=== PATIENT | female | born 1935 | race Caucasian/White ===

== ENCOUNTER 2018-09-05 15:17 | Emergency (ER) | payer OTHER ==
--- NOTE | 2018-09-05 15:36 | PDOC ---
Rapid Medical Evaluation Time Seen by Provider: 09/05/18 15:33 Medical Evaluation: 09/05/18 15:33 HPI: sent by urgent care for HTN with associated dizziness and headache since yesterday PE: no gross deficits ORDERS: cardiac work up 09/05/18 15:35 Discharge Disposition - Diagnosis Dizziness - Referrals - Patient Instructions - Post Discharge Activity
[2018-09-05 15:38] VITALS: BMI 35.3
[2018-09-05] MEDS ORDERED: SODIUM CHLORIDE 1,000 ML IV SCH (15:45)
--- NOTE | 2018-09-05 16:30 | PDOC ---
History of Present Illness - General Stated Complaint: HIGH BLOOD PRESSURE Time Seen by Provider: 09/05/18 15:33 - History of Present Illness Initial Comments: 09/05/18 16:28 82yo F hx CAD s/p stent 09/2016, HTN, HL presents to the ED with 1 day of generalized weakness, dizziness, headache, and elevated BP. Pt here with nate who reports while the patient is typically very active, she has been very tired over the last 24 hours, preferring to be in bed. She reports a gradual onset frontal headache, also for 24 hours, that feels like previous headaches she has had. She c/o dizziness as well, that she describes as feeling tired. Denies room spinning sensation or lightheadness. Jenn notes that pt's losartan dose was doubled 1 month ago due to persistently elevated BP (she is also on atenolol) and today, she was concerned the weakness and headache were a sign of elevated BP and so she took her to urgent care for a BP check. While at urgent care, her BP was found to be 183/67 and she was sent here for further evaluation. An EKG was done at as well which is non ischemic on my review. On review of systems, pt also reporting shortness of breath with exertion for weeks. Pt's jenn notes that the patient walks across the room before she feels short of breath. Denies headache, focal weakness/numbness, cp, abd pain, N/V/D, urinary sxs, rashes, back pain, neck pain. No treatments tried Past History - Past Medical History Allergies/Adverse Reactions: Allergies Allergy/AdvReac Type Severity Reaction Status Date / Time No Known Allergies Allergy Verified 09/05/18 15:38 Home Medications: Ambulatory Orders Atenolol [Tenormin] 50 mg PO DAILY 09/05/18 Atorvastatin Calcium [Lipitor] 20 mg PO HS 09/05/18 Clopidogrel Bisulfate [Plavix -] 75 mg PO DAILY 09/05/18 Losartan Potassium [Cozaar -] 50 mg PO DAILY 09/05/18 Ranitidine HCl [Zantac] 150 mg PO BID 09/05/18 COPD: No HTN: Yes Hypercholesterolemia: Yes - Suicide/Smoking/Psychosocial Hx Smoking History: Never smoked Review of Systems - Review of Systems Comments:: 09/05/18 19:31 GENERAL/CONSTITUTIONAL: No fever or chills. +weakness. HEAD, EYES, EARS, NOSE AND THROAT: No change in vision. No ear pain or discharge. No sore throat. GASTROINTESTINAL: No nausea, vomiting, diarrhea or constipation. GENITOURINARY: No dysuria, frequency, or change in urination. CARDIOVASCULAR: No chest pain +shortness of breath. RESPIRATORY: No cough, wheezing, or hemoptysis. MUSCULOSKELETAL: No joint or muscle swelling or pain. No neck or back pain. SKIN: No rash NEUROLOGIC: +headache, no vertigo, loss of consciousness, or change in strength/ sensation. ENDOCRINE: No increased thirst. No abnormal weight change. HEMATOLOGIC/LYMPHATIC: No anemia, easy bleeding, or history of blood clots. ALLERGIC/IMMUNOLOGIC: No hives or skin allergy. *Physical Exam - Vital Signs Last Vital Signs Temp Pulse Resp BP Pulse Ox 98.4 F 60 17 186/53 H 98 09/05/18 15:36 09/05/18 15:36 09/05/18 15:36 09/05/18 15:36 09/05/18 15:36 - Physical Exam Comments: 09/05/18 19:31 GENERAL: Awake, alert, and fully oriented, in no acute distress. HEAD: No signs of trauma EYES: PERRLA, EOMI, sclera anicteric, conjunctiva clear ENT: Auricles normal inspection, hearing grossly normal, nares patent, oropharynx clear without exudates. Moist mucosa NECK: Normal ROM, supple, no lymphadenopathy, JVD, or masses LUNGS: Breath sounds equal, clear to auscultation bilaterally. No wheezes, and no crackles HEART: Regular rate and rhythm, normal S1 and S2, no murmurs, rubs or gallops ABDOMEN: Soft, nontender, normoactive bowel sounds. No guarding, no rebound. No masses EXTREMITIES: Normal range of motion, no edema. No clubbing or cyanosis. No cords, erythema, or tenderness NEUROLOGICAL: Normal speech, cranial nerves intact, negative pronator drift, 5/ 5 strength in all 4 extremities, normal sensation to light touch in all 4 extremities, normal cerebellar exam, normal gait, normal reflexes and tone SKIN: Warm, Dry, normal turgor, no rashes or lesions noted. ED Treatment Course - LABORATORY CBC & Chemistry Diagram: 09/05/18 16:50 09/05/18 16:50 Medical Decision Making - Medical Decision Making 09/05/18 16:42 82yo F hx CAD s/p stent 2017, HTN, HL presents to the ED with generalized weakness, headache, and elevated BP. On arrival, BP elevated to 186/53, remaining vitals wnl Exam wnl, pt is neurologically intact. NIHSS 0 Stroke w/u initiated by RME DDx includes infection vs metabolic disarray vs CVA vs anemia vs ACS Plan: -labs -CXR -CTH -UA/Ucx -reassess 09/05/18 20:02 Pt feeling significantly better At baseline per family CTH pending - significant delays in CT as radiology dept is backed up 09/05/18 21:33 CTH negative Will rpt trop if negative, pt clincially stable for DC home 09/05/18 23:04 2nd trop neg Pt continues to feel well ate dinner Ambulating in ED at baseline Eager to go home Strict return precautions given I discussed the physical exam findings, ancillary test results and final diagnoses with the patient. I answered all of the patient's questions. The patient was satisfied with the care received and felt comfortable with the discharge plan and treatment plan. The patient will call their primary care physician within 24 hours to arrange follow-up and will return to the Emergency Department with any new, persistent or worsening symptoms. *DC/Admit/Observation/Transfer Diagnosis at time of Disposition: High blood pressure, Headache, Weakness - Discharge Dispostion Disposition: HOME Condition at time of disposition: Improved Decision to Admit order: No - Referrals Referrals: Florian Gardner MD [Primary Care Provider] - - Patient Instructions Printed Discharge Instructions: DI for High Blood Pressure Additional Instructions: Your labs, CT head, and urine testing were all normal today It is possible you were a bit dehydrated We are glad you feel better. Follow up with your primary care doctor in 2-3 days Take your medications as prescribed Return to the emergency department immediately if you have any new, worsening, or concerning symptoms It was a pleasure to take care of you today at [facility], feel better ! - Post Discharge Activity - Attestations Physician Attestion: 09/05/18 23:13 I, Dr. Nuzhat Palacio MD, attest that this document has been prepared under my direction and personally reviewed by me in its entirety. I further attest, that it accurately reflects all work, treatment, procedures and medical decision -making performed by me.
[2018-09-05 17:35] LABS: BASO % 0.8 % (0-2.0); HEMATOCRIT 36.7 % (32.4-45.2); HEMOGLOBIN 12.4 GM/dL (10.7-15.3); LYMPH % 20.4 % (8-40); MCH 30.1 pg (25.7-33.7); MCHC 33.8 g/dl (32.0-36.0); MEAN CELL VOLUME 89.2 fl (80-96); MEAN PLT VOLUME 8.5 fl (7.5-11.1); MONO % 8.1 % (3.8-10.2); NEUT % 69.7 % (42.8-82.8); PLATELET COUNT 218 K/MM3 (134-434); RBC 4.11 M/mm3 (3.60-5.2); RDW 14.4 % (11.6-15.6)
[2018-09-05 17:50] LABS: INR 1.05 (0.83-1.09); PROTHROMBIN TIME (PATIENT) 12.4 SEC (9.7-13.0)
[2018-09-05 17:54] LABS: ALBUMIN 3.6 g/dl (3.4-5.0); ALK PHOS 91 U/L (45-117); ANION GAP 5 MMOL/L (8-16); BILIRUBIN,TOTAL 0.4 mg/dL (0.2-1); BLOOD UREA NITROGEN 21.2 mg/dL (7-18); CALCIUM 8.8 mg/dL (8.5-10.1); CHLORIDE 95 mmol/L (98-107); CHOLESTEROL 156 mg/dL (50-200); CO2 31 mmol/L (21-32); CREATININE 1.1 mg/dL (0.55-1.3); GLUCOSE,RANDOM 123 mg/dL (74-106); HDL CHOLESTEROL 54 mg/dL (40-60); SGOT/AST 12 U/L (15-37); SGPT/ALT 22 U/L (13-61); SODIUM 131 mmol/L (136-145); TOT PROT 6.9 g/dl (6.4-8.2); TRIGLYCERIDES 104 mg/dL (0-150)
[2018-09-05 20:08] LABS: EPI CELLS 0.6 /HPF (0-5/HPF); HYALINE CASTS 0 /lpf (0-8); PH,URINE 7.5 (5.0-8.0); URINE APPEARANCE CLEAR; URINE BACTERIA 3.2 /hpf (NEGATIVE); URINE BILIRUBIN NEGATIVE (NEGATIVE); URINE COLOR YELLOW; URINE GLUCOSE (UA) NEGATIVE (NEGATIVE); URINE KETONE NEGATIVE (NEGATIVE); URINE LEUK ESTERASE TRACE (NEGATIVE); URINE NITRITE NEGATIVE (NEGATIVE); URINE PROTEIN NEGATIVE (NEGATIVE); URINE RBC 1 /hpf (0-4); URINE UROBILINOGEN 0.2 mg/dL (0.2-1.0); URINE WBC 1 /hpf (0-5)
[2018-09-05 23:25] VITALS: BP 138/51; PULSE 58; TEMP 987.6
--- NOTE | 2018-09-06 14:35 | EKG ---
Test Reason : Blood Pressure : / mmHG Vent. Rate : 061 BPM Atrial Rate : 061 BPM P-R Int : 162 ms QRS Dur : 072 ms QT Int : 390 ms P-R-T Axes : 058 010 038 degrees QTc Int : 392 ms POOR DATA QUALITY, INTERPRETATION MAY BE ADVERSELY AFFECTED NORMAL SINUS RHYTHM NORMAL ECG NO PREVIOUS ECGS AVAILABLE Confirmed by MD STEELE MOYSES ([id number]) on 09/06/2018 2:35:09 PM Referred By: Confirmed By:RICHARD STEELE MD
== END 2018-09-05 23:27 | disposition home or self-care (01) ==
LOC: JER 15:17
PROC: 3E0337Z Introduction of Electrolytic and Water Balance Substance into Peripheral Vein, Percutaneous Approach (ICD-10-PCS; principal; 2018-09-05)
DX: I10 Essential (primary) hypertension (principal); R53.1 Weakness; R51 Headache
CPT/HCPCS: 36415; 70450-TC; 71045-TC-FY; 80053; 81003; 82465; 82550; 83718; 83721; 83880; 84478; 84484; 85025; 85610; 86850; 86900; 86901; 93005; 93010; 99283-25; J7030